=== PATIENT | female | born 1995 ===

== ENCOUNTER 2018-06-19 20:09 | Inpatient (IN) ==
[2018-06-19 20:57] LABS: Apearance,Urine Slightly Hazy (Clear); Bilirubin,Urine Negative (Negative); Blood, Urine Small mg/dL (Negative); Glucose,Urine (UA) Negative (Negative); Hyaline Casts,Urine 1 /LPF (0-3); Ketones,Urine Negative (Negative); Mucus,Urine Occasional /LPF (Occasional); Nitrite,Urine Negative (Negative); Protein,Urine >=500 MG/DL; RBC,Urine 3 /HPF (0-4); Squamous Epithelial Cell,Urine Occasional /HPF (0-10); Urine Color Amber (Yellow); Urine Specific Gravity 1.031 (1.001-1.035); Urine Urobilinogen < 2.0 EU/DL (0.2-1.0); WBC,Urine 1 /HPF (0-6)
[2018-06-19 21:04] LABS: Basophils % 0.4 % (0.0-0.8); Eosinophils % 0.4 % (0.00-10.9); Hematocrit 32.1 VOL% (35.7-47.0); Hemoglobin 9.8 GM/DL (12.0-16.0); Immature Granulocytes % 1.6 %; Immature Granulocytes Absolute 0.17 #; Lymphocytes # 2.1 10*3/uL (1.4-4.0); Lymphocytes % 19.6 % (21.3-54.2); Mean Corpuscular HGB Conc 30.5 GM/DL (32-36); Mean Platelet Volume 9.7 FL (9.6-12.0); Monocytes % 4.8 % (1.7-12.7); NRBC # 0.05 10*3/uL; Neutrophils % 73.2 % (38.7-73.9); Platelet Count 300 T/CUMM (130-400); Red Blood Count 4.17 MC/CUMM (3.8-5.5); Red Cell Distribution Width 15.5 % (9.3-17.3); White Blood Count 10.9 T/CUMM (4-12)
[2018-06-19 21:14] LABS: INR 0.8; PT Patient Result 9.2 SECS; Partial Thromboplastin Time 24.6 SECS (0-40)
[2018-06-19 21:30] LABS: Alanine Aminotransferase 16 U/L (13-56); Albumin 1.9 G/DL (3.4-5.0); Alkaline Phosphatase 167 U/L (45-117); Aspartate Amino Transferase 25 U/L (0-37); Bilirubin,Direct < 0.100 MG/DL (0.0-0.20); Blood Urea Nitrogen 10 MG/DL (7-18); Calcium 8.4 MG/DL (8.5-10.1); Glucose 78 MG/DL (74-106); Osmolality,Calculated 274.5 MOS/KG (273-304); Total Protein 6.3 G/DL (6.4-8.3); Uric Acid 6.1 MG/DL (2.6-6.0)
[2018-06-19] MEDS ORDERED: LACTATED RINGERS 1,000 ML IV ONE (22:26)
[2018-06-20] MEDS ORDERED: FAMOTIDINE 20 MG/2 ML VIAL IV PRN ×2 (06:43→13:00)
[2018-06-20] MEDS ORDERED: ceFAZolin 3,000 MG in SYRINGE 1 EACH IV PRN (06:43)
[2018-06-20] MEDS ORDERED: CITRIC ACID/SODIUM CITRATE 30 ML UDCUP PO PRN ×2 (06:43→13:00)
[2018-06-20] MEDS ORDERED: hydrALAZINE 20 MG/1 ML VIAL IV ONE ×3 (06:45→21:27)
[2018-06-20] MEDS ORDERED: fentaNYL 100 MCG/2 ML VIAL ONE (06:50)
[2018-06-20] MEDS ORDERED: PHENYLEPHRINE 1 MG/10 ML SYRINGE IV ONE (06:50)
[2018-06-20] MEDS ORDERED: ONDANSETRON 4 MG/2 ML VIAL ONE (06:51)
[2018-06-20] MEDS ORDERED: BUPIVACAINE SPINAL 0.75% 2 ML AMP SPINAL ONE (06:51)
[2018-06-20] MEDS ORDERED: MORPHINE 10 MG/10 ML VIAL ONE (06:51)
[2018-06-20] MEDS ORDERED: LACTATED RINGERS 1,000 ML IV SCH ×2 (07:00→17:00)
[2018-06-20] MEDS ORDERED: OXYTOCIN/LR 30 UNIT/1,000 ML BAG IV ONE ×2 (09:18→13:00)
[2018-06-20] MEDS ORDERED: ACETAMINOPHEN 325 MG TABLET PO ONE (10:54)
[2018-06-20] MEDS ORDERED: OXYTOCIN 10 UNIT/ML VIAL IM ONE (14:48)
[2018-06-20 16:50] LABS: Cord Arterial Blood HCO3 20.1 MMOL/L
[2018-06-20 16:53] LABS: Cord Venous Blood HCO3 22.7 MMOL/L; Cord Venous Blood PCO2 50.7 MMHG; Cord Venous Blood PO2 21.3
[2018-06-20] MEDS ORDERED: ACETAMINOPHEN 325 MG TABLET PO PRN (16:57)
[2018-06-20] MEDS ORDERED: RHO(D) IMMUNE GLOBULIN 300 MCG SYRINGE IM ONE (16:57)
[2018-06-20] MEDS ORDERED: ONDANSETRON 4 MG/2 ML VIAL IV PRN (16:57)
[2018-06-20] MEDS ORDERED: SIMETHICONE CHEW 80 MG TABLET PO PRN (16:57)
[2018-06-20] MEDS ORDERED: OXYTOCIN/LR 20 UNIT/1,000 ML BAG IV ONE (16:57)
[2018-06-20 17:38] LABS: Apearance,Urine CLEAR (Clear); Bilirubin,Urine Negative (Negative); Blood, Urine Negative (Negative); Glucose,Urine (UA) Negative (Negative); Ketones,Urine Negative (Negative); Mucus,Urine Occasional /LPF (Occasional); Nitrite,Urine Negative (Negative); Protein,Urine >=500 MG/DL; RBC,Urine 1 /HPF (0-4); Squamous Epithelial Cell,Urine Occasional /HPF (0-10); Urine Color Yellow (Yellow); Urine Specific Gravity 1.018 (1.001-1.035); Urine Urobilinogen < 2.0 EU/DL (0.2-1.0); WBC,Urine 1 /HPF (0-6)
[2018-06-21 05:10] LABS: Basophils # 0.1 10*3/uL (0.0-0.2); Basophils % 0.4 % (0.0-0.8); Eosinophils % 0.1 % (0.00-10.9); Hematocrit 34.9 VOL% (35.7-47.0); Hemoglobin 10.6 GM/DL (12.0-16.0); Immature Granulocytes % 1.2 %; Immature Granulocytes Absolute 0.17 #; Lymphocytes # 1.6 10*3/uL (1.4-4.0); Lymphocytes % 11.1 % (21.3-54.2); Mean Corpuscular HGB Conc 30.4 GM/DL (32-36); Mean Corpuscular Volume 77.4 FL (87-102); Mean Platelet Volume 9.9 FL (9.6-12.0); Monocytes % 4.6 % (1.7-12.7); Neutrophils % 82.6 % (38.7-73.9); Platelet Count 300 T/CUMM (130-400); Red Blood Count 4.51 MC/CUMM (3.8-5.5); Red Cell Distribution Width 15.9 % (9.3-17.3); White Blood Count 14.2 T/CUMM (4-12)
[2018-06-21] MEDS: IBUPROFEN 800 MG TABLET PO PRN (08:15)
[2018-06-21] MEDS: MULTIVITAMIN (PRENATAL) TABLET PO SCH (10:21)
[2018-06-21] MEDS: MAGNESIUM HYDROXIDE SUSP 30 ML UDCUP PO PRN ×2 (10:21→20:52)
[2018-06-21] MEDS: DOCUSATE SODIUM 100 MG CAPSULE PO SCH ×3 (10:21→20:52)
[2018-06-21] MEDS ORDERED: ceFAZolin 1,000 MG in SYRINGE 1 EACH IV SCH ×2 (10:30)
[2018-06-21] MEDS: FUROSEMIDE 40 MG TABLET PO SCH ×2 (14:19→19:35)
[2018-06-21] MEDS: METOCLOPRAMIDE 10 MG TABLET PO SCH (20:52)
[2018-06-22] MEDS: IBUPROFEN 800 MG TABLET PO PRN ×2 (01:33→11:56)
[2018-06-22] MEDS: METOCLOPRAMIDE 10 MG TABLET PO SCH ×2 (04:35→16:56)
[2018-06-22] MEDS: FUROSEMIDE 40 MG TABLET PO SCH (04:35)
[2018-06-22] MEDS: MULTIVITAMIN (PRENATAL) TABLET PO SCH (09:01)
[2018-06-22] MEDS: DOCUSATE SODIUM 100 MG CAPSULE PO SCH (13:16)
[2018-06-22 18:49] VITALS: BP 142/88
== END 2018-06-22 18:50 | disposition home or self-care (01) | DRG 540 ==
LOC: N.LDOUT 20:09 → N.LD 20:13 → N.OB 06-21 13:38
PROVIDERS: ADMIT Obstetrics & Gynecology; ATTEND Obstetrics & Gynecology
PROC: LDCSECT (ICD-10-PCS; 2018-06-20 16:00)